=== PATIENT | male | born 1960 | race Caucasian/White ===

== ENCOUNTER 2020-12-04 01:12 | Day surgery (SDC) | payer OTHER, SELFPAY ==
[2020-11-22 14:02] VITALS: BMI 33.5
--- NOTE | 2020-12-04 10:55 | WPDANESEPPF ---
Anes - Initial Pre Proc Eval Procedure: Operation Date: 12/04/20 12:30 Proposed Procedures p Screening Colonoscopy - Tim Aguirre MD Date/Time: 12/04/20 10:55 Surgeon: Tim Aguirre MD Pre Op Diagnosis: neoplasm screening Patient Data Age: 60 Gender: M Height: 1.73 m Weight: 100 kg Allergies Allergy/AdvReac Type Severity Reaction Status Date / Time No Known Allergies Allergy Verified 12/04/20 11:26 Home Medications Medication Instructions Recorded Confirmed Type diphenhydramine HCl 25 mg capsule 25 mg PO Q4-6H PRN cap 02/11/19 11/22/20 History lisinopril 20 1 tablet PO DAILY #90 tablet 09/07/20 11/22/20 Rx mg-hydrochlorothiazide 12.5 mg tablet cyclobenzaprine 10 mg tablet 10 mg PO .COMPLEX #90 tablet 09/11/20 11/22/20 Rx Patient hx anesthesia problems: none Family hx anesthesia problems: none PMFSH Past Medical History Medical History (Updated 12/04/20 @ 10:56 by Vinay Barr MD) Essential (primary) hypertension History of melanoma Melanoma Obesity Prediabetes (~2014) SI (sacroiliac) joint inflammation Family History Family History (Updated 11/18/13 @ 07:13 by DOCTOR UNKNOWN) Father Cerebrovascular accident Family history of malignant neoplasm of kidney Hypertension Mother Hypertension Family history of malignant neoplasm of skin Sibling Family history of malignant melanoma Social History Social History Smoking status: Never smoker Alcohol intake: current Living arrangements: with family Spiritual care concerns: No Anes - Eval Final PreProcedure Day of Procedure 12/04/20 10:55 Patient weight: obese Heart: regular rate and rhythm Lungs: clear to auscultation and normal air movement Airway: Mallampati scale class II Neurological: alert and oriented Last oral intake: >/= 8 hours ASA classification: III Emergent: no Anesthetic plan: proceed Anesthesia type and monitoring: general GIVS Informed Consent: The patient's anesthetic plan and its attendant risks and benefits were discussed with the patient/family/POA. Questions were solicited and answers provided to the satisfaction of the patient/family/POA.
[2020-12-04 11:27] VITALS: BP 148/98; PULSE 71; RESP 16; TEMP 36.1; O2SAT 100
[2020-12-04] MEDS: LACTATED RINGERS 1,000 ML 150 ML IV CONT (12:05)
--- NOTE | 2020-12-04 12:10 | PM.HPGS ---
History of Present Illness History of Present Illness Consent: Risks, benefits, and alternatives have been discussed and questions answered. Patient agrees to proceed with procedure. Chief complaint: neoplasm screening Narrative: Shaw Santiago is a 60 year old male referred for colon cancer screening. It has been 10 years since his last colonoscopy Review of Systems Review of Systems: All systems reviewed & are unremarkable except as noted in HPI and below PMFSH Past Medical History Medical History Essential (primary) hypertension History of melanoma Melanoma Obesity Prediabetes (~2014) SI (sacroiliac) joint inflammation Family History Family History Father Cerebrovascular accident Family history of malignant neoplasm of kidney Hypertension Mother Hypertension Family history of malignant neoplasm of skin Sibling Family history of malignant melanoma Social History Social History Smoking status: Never smoker Alcohol intake: current Living arrangements: with family Spiritual care concerns: No Meds Home Medications and Allergies Home Medications Medication Instructions Recorded Confirmed Type diphenhydramine HCl 25 mg capsule 25 mg PO Q4-6H PRN cap 02/11/19 11/22/20 History lisinopril 20 1 tablet PO DAILY #90 tablet 09/07/20 11/22/20 Rx mg-hydrochlorothiazide 12.5 mg tablet cyclobenzaprine 10 mg tablet 10 mg PO .COMPLEX #90 tablet 09/11/20 11/22/20 Rx Allergies Allergy/AdvReac Type Severity Reaction Status Date / Time No Known Allergies Allergy Verified 12/04/20 11:26 Vital Signs Vital Signs - 24 hr 12/04/20 11:27 Temperature 36.1 C L Pulse Rate 71 Respiratory Rate 16 Blood Pressure 148/98 H Pulse Oximetry 100 Exam Resp: Auscultation: clear to auscultation bilaterally Cardio: Rate: regular rate Rhythm: regular rhythm GI: GI Palp: Yes Soft to palpation and No Tenderness to palpation present (GI) Assessment and Plan Assessment and plan (1) Colon cancer screening: Code(s): Z12.11 - Encounter for screening for malignant neoplasm of colon Status: Acute Assessment and Plan: Colonoscopy with possible biopsy or polypectomy or cautery or injection of substances.
[2020-12-04 12:34] VITALS: BP 124/71; PULSE 65; RESP 15; O2SAT 100
[2020-12-04 12:44] VITALS: BP 134/88; PULSE 60; RESP 26; O2SAT 100
[2020-12-04 12:54] VITALS: BP 136/76; PULSE 54; RESP 20; O2SAT 99
== END 2020-12-04 13:02 | disposition home or self-care (01) ==
PROVIDERS: PCP Nurse Practitioner Family; Visit Provider Internal Medicine Gastroenterology
PROC: 0DJD8ZZ Inspection of Lower Intestinal Tract, Via Natural or Artificial Opening Endoscopic (ICD-10-PCS; CPT 45378; principal; 2020-12-04 12:30)
DX: Z12.11 Encounter for screening for malignant neoplasm of colon (principal); K57.30 Diverticulosis of large intestine without perforation or abscess without bleeding; I10 Essential (primary) hypertension; R73.03 Prediabetes; E66.9 Obesity, unspecified; Z85.820 Personal history of malignant melanoma of skin
CPT/HCPCS: 45378; J2704; J7120

== ENCOUNTER 2022-09-02 08:47 | Outpatient (CLI) | payer OTHER, SELFPAY ==
[2022-09-02 14:25] LABS: Basophils Absolute Auto 0.1 K/mm3 (0.0-0.1); Basophils Percent Auto 0.7 % (0.2-1.2); Eosinophils Percent Auto 0.6 % (0-4.4); Hematocrit 42.3 % (42.0-52.0); Hemoglobin 14.2 g/dL (14.0-18.0); Immature Granulocyte Absolute 0.02 K/mm3 (0.00-0.031); Immature Granulocyte Percent A 0.3 % (0-0.5); Lymphocytes Absolute Auto 1.21 K/mm3 (0.9-3.2); Lymphocytes Percent Auto 16.7 % (18.3-44.2); Mean Corpuscular HGB Conc 33.6 g/dl (32-36); Mean Corpuscular Hemoglobin 30.5 pg (26-34); Mean Corpuscular Volume 90.8 fl (80-100); Mean Platelet Volume 10.2 fl (7.4-10.4); Monocytes Absolute Auto 0.4 K/mm3 (0.1-0.6); Monocytes Percent Auto 5.9 % (2.6-8.5); Neutrophils Absolute Auto 5.5 K/mm3 (1.3-6.7); Neutrophils Percent Auto 75.8 % (45.5-73.1); Platelet Count Result 321 k/mm3 (150-375); Red Blood Count 4.66 M/mm3 (4.6-6.20); Red Cell Distribution Width 14.1 % (11.5-14.5); White Blood Count 7.2 K/mm3 (4.5-10.0)
[2022-09-02 14:31] LABS: Alanine Aminotransferase 27 U/L (6-50); Albumin Level 4.1 g/dL (3.5-5.1); Alkaline Phosphatase 54 U/L (38-126); Anion Gap 2 mmol/L (8-16); Aspartate Amino Transferase 37 U/L (17-59); Bilirubin,Total 0.7 mg/dL (0.2-1.3); Blood Urea Nitrogen 17 mg/dL (9-20); Calcium 8.5 mg/dL (8.4-10.2); Carbon Dioxide 30 mmol/L (22-30); Chloride 106 mmol/L (98-107); Cholesterol 183 mg/dL (0-200); Estimated Glomerular Filt Rate > 60; Glucose 80 mg/dL (65-110); HDL Direct 44 mg/dL; Potassium 4.8 mmol/L (3.4-5.0); Sodium 138 mmol/L (137-145); Triglycerides 89 mg/dL (<150)
[2022-09-02 14:42] LABS: LDL Cholesterol Direct 117 mg/dL
[2022-09-02 15:03] LABS: Prostate Specific Antigen 0.9 ng/mL (< OR = 4.0)
[2022-09-02 15:09] LABS: Vitamin D 25 Hydroxy 33.5 ng/mL
[2022-09-02 16:13] LABS: Hemoglobin A1C 5.5 % (<5.7)
== END 2022-09-02 08:48 | disposition home or self-care (01) ==
LOC: ANHGOSHLAB 08:48
PROVIDERS: PCP Family Medicine; Visit Provider Nurse Practitioner Family
DX: Z00.00 Encounter for general adult medical examination without abnormal findings (principal); I10 Essential (primary) hypertension; R73.03 Prediabetes; E78.5 Hyperlipidemia, unspecified; Z12.5 Encounter for screening for malignant neoplasm of prostate; E55.9 Vitamin D deficiency, unspecified
CPT/HCPCS: 36415; 80053; 80061; 82306; 83036; 84153; 84443; 85025; G0103

== ENCOUNTER 2023-12-04 08:55 | Outpatient (CLI) | payer OTHER, SELFPAY ==
[2023-12-04 18:54] LABS: Basophils Absolute Auto 0.1 K/mm3 (0.0-0.1); Basophils Percent Auto 0.8 % (0.2-1.2); Eosinophils Absolute Auto 0.1 K/mm3 (0-0.3); Eosinophils Percent Auto 2.2 % (0-4.4); Immature Granulocyte Absolute 0.02 K/mm3 (0.00-0.031); Immature Granulocyte Percent A 0.3 % (0-0.5); Lymphocytes Absolute Auto 1.38 K/mm3 (0.9-3.2); Lymphocytes Percent Auto 22.8 % (18.3-44.2); Mean Corpuscular HGB Conc 33.3 g/dl (32-36); Mean Corpuscular Hemoglobin 30.8 pg (26-34); Mean Corpuscular Volume 92.4 fl (80-100); Mean Platelet Volume 10.6 fl (7.4-10.4); Monocytes Absolute Auto 0.6 K/mm3 (0.1-0.6); Monocytes Percent Auto 9.3 % (2.6-8.5); Neutrophils Absolute Auto 3.9 K/mm3 (1.3-6.7); Neutrophils Percent Auto 64.6 % (45.5-73.1); Platelet Count Result 316 k/mm3 (150-375); Red Blood Count 4.87 M/mm3 (4.6-6.20); Red Cell Distribution Width 14.2 % (11.5-14.5)
[2023-12-04 19:15] LABS: Alanine Aminotransferase 21 U/L (6-50); Albumin Level 4.2 g/dL (3.5-5.1); Alkaline Phosphatase 47 U/L (38-126); Anion Gap 9 mmol/L (4-12); Aspartate Amino Transferase 50 U/L (17-59); Bilirubin,Total 0.7 mg/dL (0.2-1.3); Blood Urea Nitrogen 17 mg/dL (9-20); Calcium 8.9 mg/dL (8.4-10.2); Carbon Dioxide 28 mmol/L (22-30); Chloride 100 mmol/L (98-107); Cholesterol 189 mg/dL (0-200); Estimated Glomerular Filt Rate > 60; Glucose 83 mg/dL (65-110); HDL Direct 44 mg/dL; Potassium 4.4 mmol/L (3.4-5.0); Sodium 137 mmol/L (137-145); Triglycerides 106 mg/dL (<150)
[2023-12-04 19:26] LABS: LDL Cholesterol Direct 115 mg/dL
[2023-12-04 19:40] LABS: Prostate Specific Antigen 1.2 ng/mL (< OR = 4.0)
[2023-12-04 19:54] LABS: Hemoglobin A1C 5.8 % (<5.7)
[2023-12-04 20:01] LABS: Thyroid Stimulating Hormone Reflex 0.818 uIU/mL (0.465-4.68)
[2023-12-07 13:23] LABS: Vitamin D 1,25 (OH)2 Total 27 pg/mL (18-72); Vitamin D2 1,25 (OH)2 <8 pg/mL; Vitamin D3 1,25 (OH)2 27 pg/mL
== END 2023-12-04 08:56 | disposition home or self-care (01) ==
LOC: ANHGOSHLAB 08:57
PROVIDERS: PCP Family Medicine; Visit Provider Nurse Practitioner Family
DX: Z00.00 Encounter for general adult medical examination without abnormal findings (principal); E55.9 Vitamin D deficiency, unspecified; F41.9 Anxiety disorder, unspecified; R73.03 Prediabetes; I10 Essential (primary) hypertension; E66.9 Obesity, unspecified; E78.5 Hyperlipidemia, unspecified; E53.8 Deficiency of other specified B group vitamins; E03.9 Hypothyroidism, unspecified; Z12.5 Encounter for screening for malignant neoplasm of prostate
CPT/HCPCS: 36415; 80053; 80061; 82607; 82652; 83036; 84153; 84443; 85025

== ENCOUNTER 2024-11-29 07:59 | Outpatient (CLI) | payer MEDICARE, OTHER, SELFPAY ==
--- OUTSIDE RECORDS SUMMARY | 2024-11-29 08:14 | XMS_ITS | Encounter Summary ---
Author Organization [facility] Address [address] [facility] [place] [address] Care Team Providers Care Title Processor Name Role Phone Evan Haas MD Primary Care Provider [phone] Encounter Details Date Type Department Care Team (Late st Contact Info) Description 08/21/2022 Lab Requisition [facility] - DermPath Lab [address] [facility] [place] [address] Yady Rae MD [address] [facility] [address] [place] [address] Social History Tobacco Use Types Packs/Day Years Used Date Smoking Tobacco: Never Smokeless Tobacco: Never Alcohol Use Standard Drinks/Week Comments No 0 (1 standard drink = 0.6 oz pur e alcohol) Sex and Gender Information Value Date Recorded Sex Assigned at Not on file 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 Sex 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 Gender Identity Not on file Sexual Orientation Not on file documented as of this encounter Plan of Treatment Not on file documented as of this encounter Procedures Procedure Name Priority Date/Time Associated Diagnosis Comments DERMATOPATHOLOGY Routine 08/21/2022 8:21 AM CDT documented in this encounter Results * DERMATOPATHOLOGY (08/21/2022 8:21 AM CDT) Case Report Dermatopathology Report Case: [id number] Authorizing Provider: Yady Rae MD Collected: 08/21/2022 08:21 AM Ordering Location: [facility] DermPath Lab Received: 08/21/2022 12:54 PM Pathologist: Roseanne Bland MD Specimen: Skin, post neck 1:38 PM CDT DERMATOPATHOLOGY LABORATORY Final Diagnosis Specimen A. SKIN, post neck: BENIGN VERRUCOUS KERATOSIS, INFLAMED (L82.1) EPIDERMAL NECROSIS SUGGESTIVE OF EXCORIATION (L98.499) (see microscopic description) 1:38 PM CDT DERMATOPATHOLOGY LABORATORY at 1338 CDT Clinical History [place] Papule ISK vs. SCC 1:38 PM CDT DERMATOPATHOLOGY LABORATORY Gross Description Specimen A: Received is one formalin filled container labeled with the patient's name and designated post neck. The specimen consists of a shave biopsy measuring 7x6x4 mm. Jar 0. 1:38 PM CDT DERMATOPATHOLOGY LABORATORY Microscopic Description Specimen A. SKIN, post neck: Sections show hyperkeratosis, papillomatosis, hypergranulosis, and acanthosis. Inflammatory cells are present within the dermis. These histological findings can be seen in a verruca vulgaris or a seborrheic keratosis. The epidermis is focally necrotic and covered with a scale-crust. There is fibrin at the base. Additional deeper sections were obtained and reviewed. 1:38 PM CDT DERMATOPATHOLOGY LABORATORY Disclaimer An external and internal positive and negative controls are appropriate for the histochemical, immunohistochemical and immunofluorescence stain(s) in this case (if any), except where stated explicitly. The performance characteristics of the stain(s) cited in this report were developed and its performance characteristic determined by the Dermatopathology Laboratory at [facility], directed by Dr. Luma Meléndez. These tests need not be, and therefore are not, approved by the [place] Food and Drug Administration. The tests are used for clinical purposes. Billing Codes Specimen Charges Stain Charges 25768 1 1:38 PM CDT DERMATOPATHOLOGY LABORATORY Embedded Images 1:38 PM CDT DERMATOPATHOLOGY LABORATORY Pathology/Cytolo gy TISSUE SPECIMEN FROM SKIN / Unknown 08/21/2022 8:21 AM CDT 08/21/2022 12:54 PM CDT Yady Rae MD LAB - PATHOLOGY/CYTOLOGY ORD ERABLES Final Result DERMATOPATHOLOGY LABORATORY [facility] - Department of Dermatology [facility] Medicine [address] [place] [address], [address] [phone] documented in this encounter Visit Diagnoses Not on filedocumented in this encounter Care Teams Title Processor Relationship Specialty Start Date End Date Evan Haas MD [address] [place] [address] PCP - General 02/06/15 documented as of this encounter
--- OUTSIDE RECORDS SUMMARY | 2024-11-29 08:14 | XMS_ITS | Encounter Summary ---
Author Organization [facility] Address [address] [place] [address] Care Team Providers Care Coffee Grower Name Role Phone Evan Haas MD Primary Care Provider [phone] Encounter Details Date Type Department Care Team (Late st Contact Info) Description 10/27/2024 Lab Requisition [facility] - DermPath Lab [address] [facility] [place] [address] Yady Rae MD [address] 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 Gender Identity Not on file Sexual Orientation Not on file documented as of this encounter Plan of Treatment Not on file documented as of this encounter Procedures Procedure Name Priority Date/Time Associated Diagnosis Comments DERMATOPATHOLOGY Routine 10/27/2024 9:37 AM CDT documented in this encounter Results * DERMATOPATHOLOGY (10/27/2024 9:37 AM CDT) Case Report Dermatopathology Report Case: [id number] Authorizing Provider: Yady Rae MD Collected: 10/27/2024 09:37 AM Ordering Location: [facility] - Received: 10/27/2024 04:36 PM DermPath Lab Pathologist: Aisha Bland MD Specimens: A) - Skin, right chin B) - Skin, left neck 12:55 PM CDT DERMATOPATHOLOGY LABORATORY Final Diagnosis Specimen A. 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 SKIN, left neck: NEUROFIBROMA (D36.10) 12:55 PM CDT DERMATOPATHOLOGY LABORATORY at 1255 CDT Clinical History A-B: Nevus; R/O Atypia 12:55 PM CDT DERMATOPATHOLOGY LABORATORY Gross Description Specimen A: Received is one formalin filled container labeled with the patient's name and designated right chin. The specimen consists of a shave biopsy measuring 2 pieces 4x4x1,3x2x1 mm. Jar 0. Specimen B: Received is one formalin filled container labeled with the patient's name and designated left neck. The specimen consists of a shave biopsy measuring 7x6x2 mm. Jar 0. 12:55 PM CDT DERMATOPATHOLOGY LABORATORY Microscopic Description Specimen A. SKIN, right chin: Within the dermis, there is a well-circumscribed aggregate of spindle shaped cells with hints of organization into fascicles and clefts between these fascicles. Specimen B. SKIN, left neck: Sections show a proliferation of spindled and S-shaped cells within the dermis. The stromal collagen is delicate and pale. 12:55 PM CDT DERMATOPATHOLOGY LABORATORY Disclaimer An external and internal positive and negative controls are appropriate for the histochemical, immunohistochemical and immunofluorescence stain(s) in this case (if any), except where stated explicitly. The performance characteristics of the stain(s) cited in this report were developed and its performance characteristic determined by the Dermatopathology Laboratory at [facility], directed by Dr. Luma Meléndez. These tests need not be, and therefore are not, approved by the [place] Food and Drug Administration. The tests are used for clinical purposes. Billing Codes Specimen Charges Stain Charges 02156 79176 1 1 12:55 PM CDT DERMATOPATHOLOGY LABORATORY Embedded Images 12:55 PM CDT DERMATOPATHOLOGY LABORATORY Pathology/Cytology TISSUE SPECIMEN FROM SKIN / Unknown 10/27/2024 9:37 AM CDT 10/27/2024 4:36 PM CDT Miscellaneous samples (specimen) TISSUE SPECIMEN FROM SKIN / Unknown 10/27/2024 9:37 AM CDT 10/27/2024 4:36 PM CDT us Yady Rae MD LAB - PATHOLOGY/CYTOLOGY ORD ERABLES Final Result DERMATOPATHOLOGY LABORATORY [facility] - Department of Dermatology [facility] Medicine [address] [place] [address], [address] [phone] documented in this encounter Visit Diagnoses Not on filedocumented in this encounter Care Teams Coffee Grower Relationship Specialty Start Date End Date Evan Haas MD [address] [place] [address] PCP - General 02/06/15 documented as of this encounter
--- OUTSIDE RECORDS SUMMARY | 2024-11-29 08:14 | XMS_ITS | Encounter Summary ---
Author Organization [facility] Address [address] [place] [place] [address] Care Team Providers Care Code Enforcement Inspector Name Role Phone Evan Haas MD Primary Care Provider [phone] Encounter Details Date Type Department Care Team (Late st Contact Info) Description 05/04/2019 Lab Requisition [facility] DermPath Lab [address] [facility], [place] [address] Yady Rae MD [address] [facility] [address] [place] [address] Social History Tobacco Use Types Packs/Day Years Used Date Smoking Tobacco: Never Smokeless Tobacco: Never Alcohol Use Standard Drinks/Week Comments No 0 (1 standard drink = 0.6 oz pur e alcohol) Sex and Gender Information Value Date Recorded Sex Assigned at Not on file Legal Sex 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 Gender Identity Not on file Sexual Orientation Not on file documented as of this encounter Plan of Treatment Not on file documented as of this encounter Procedures Procedure Name Priority Date/Time Associated Diagnosis Comments DERMATOPATHOLOGY Routine 05/03/2019 12:0 0 AM CARDIAC NURSE SPECIALIST documented in this encounter Results * DERMATOPATHOLOGY (05/03/2019 12:00 AM CARDIAC NURSE SPECIALIST) Case Report Dermatopathology Report Case: [id number] Authorizing Provider: Yady Rae MD Collected: 05/03/2019 12:00 AM Ordering Location: [facility] DermPath Lab Received: 05/04/2019 08:05 AM Pathologist: Arpita Bender MD Specimen: Skin, low back 0 12:35 PM CARDIAC NURSE SPECIALIST DERMATOPATHOLOGY LABORATORY Final Diagnosis Specimen A. SKIN, low back: COMPOUND NEVUS WITH CONGENITAL FEATURES (D22.5) 0 12:35 PM [facility] DERMATOPATHOLOGY LABORATORY at 1235 CARDIAC NURSE SPECIALIST Clinical History R/O MM. Hx of MM. 0 12:35 PM [facility] DERMATOPATHOLOGY LABORATORY Gross Description Specimen A: Received is one formalin filled container labeled with the patient's name and designated low back. The specimen consists of a shave measuring 46y62a0pd. Jar 0. 0 12:35 PM [facility] DERMATOPATHOLOGY LABORATORY Microscopic Description Specimen A. SKIN, low back: There are nests of melanocytes at the dermal-epidermal junction and within the dermis. Some melanocytes are splayed between collagen bundles and are localized around adnexal structures. 0 12:35 PM [facility] DERMATOPATHOLOGY LABORATORY Disclaimer An external and internal positive and negative controls are appropriate for the histochemical, immunohistochemical and immunofluorescence stain(s) in this case (if any), except where stated explicitly. The performance characteristics of the stain(s) cited in this report were developed and its performance characteristic determined by the Dermatopathology Laboratory at [facility], directed by Dr. Luma Meléndez. These tests need not be, and therefore are not, approved by the [place] Food and Drug Administration. The tests are used for clinical purposes. Billing Codes Specimen Charges Stain Charges 47240 1 0 12:35 PM [facility] DERMATOPATHOLOGY LABORATORY Embedded Images 0 12:35 PM [facility] DERMATOPATHOLOGY LABORATORY Pathology/Cytolog y TISSUE SPECIMEN FROM SKIN / Unknown 05/03/2019 05/04/2019 8:05 AM CARDIAC NURSE SPECIALIST us Yady Rae MD LAB - PATHOLOGY/CYTOLOGY ORD ERABLES Final Result DERMATOPATHOLOGY LABORATORY [facility] - Department of Dermatology [address] [facility], [address]th [place] [address], [facility] [phone] documented in this encounter Visit Diagnoses Not on filedocumented in this encounter Care Teams Code Enforcement Inspector Relationship Specialty Start Date End Date Evan Haas MD [address] [place] [address] PCP - General 02/06/15 documented as of this encounter
--- OUTSIDE RECORDS SUMMARY | 2024-11-29 08:14 | XMS_ITS | Clinical Summary ---
Author Organization [facility] Address [address] [place] [address] Care Team Providers Care Medical Equipment Technician Name Role Phone Evan Haas MD Primary Care Provider [phone] Source Comments [facility],non-owned Affiliates and Associated Physician Practices is amultiple site organization consisting of ambulatory clinics and hospital sitesin [place], [place], [place] and [place]. This disclosure is being madepursuant to the Care Everywhere program and may not contain all information available regarding this patient. Last updated 17.[facility] Active Problems Problem Noted Date Diagnosed Date Malignant melanoma of other part of trunk 2013 Encounters Date Type Department Care Team Description 10/27/[address] [facility] - DermPath Lab [address] [facility] [place] [address] Yady Rae MD from Last 3 Months Family History Medical History Relation Name Comments Hypertension Brother Status: Alive Cancer Father Status: Alive Hypertension Father Leukemia Maternal Grandfather Status: None Known Mother Status: Alive Cancer Paternal Grandmother Status: Relation Name Status Comments Brother Father Maternal Grandfather Mother Paternal Grandmother Social History Tobacco Use Types Packs/Day Years Used Date Smoking Tobacco: Never Smokeless Tobacco: Never Alcohol Use Standard Drinks/Week Comments No 0 (1 standard drink = 0.6 oz pur e alcohol) Sex and Gender Information Value Date Recorded Sex Assigned at Not on file Legal Sex Male 6:07 PM 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 Gender Identity Not on file Sexual Orientation Not on file Last Filed Vital Signs Vital Sign Reading Time Taken Comments Blood Pressure 139/81 02/06/2015 1:51 PM 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 Pulse 82 02/06/2015 1:51 PM 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 Temperature 36.9 C (98.5 F) 02/06/2015 1:51 PM 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 Respiratory Rate - - Oxygen Saturation - - Inhaled Oxygen Concentration - - Weight 113.9 kg (251 lb) 02/06/2015 1:51 PM 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 Height 172.7 cm (5' 8) 01/24/2014 12:46 PM 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 Body Mass Index 38.16 01/24/2014 12:46 PM 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 Plan of Treatment Health Maintenance Due Date Last Done Comments COLOGUARD (AGES 45-75) - COL ON CA SCREENING 1959 COLON MONITORING 1959 COLONOSCOPY - COLON CA SCREENING 1959 CT COLONOGRAPHY - COLON CA SCREENING 1959 Colorectal Cancer Screening 1959 FIT - COLON CA SCREENING 1959 FLEX SIG - COLON CA SCREENING 1959 LIPID TESTING 1959 MEDICARE AWV 12 MONTHS 1959 HIV SCREENING 09/09/1974 HEPATITIS C SCREENING 09/05/1977 DTAP/TDAP/TD VACCINES (1 - Tdap) 09/09/1978 PNEUMOCOCCAL VACCINE 50+ (1 of 1 - PCV) 09/09/2009 ZOSTER VACCINE (1 of 2) 09/09/2009 DEPRESSION SCREENING 03/24/2024 COVID-19 VACCINE ( - 2023-2 5 season) 2024 INFLUENZA VACCINE (#1) 2024 Respiratory Syncytial Virus (RSV) Vaccine Pt: or over 60 yrs (1 - 1-dose 75+ series) 09/09/2034 HEPATITIS B VACCINE Aged Out No longe r eligible based on patient's age to complete this topic HIB VACCINE Aged Out No longer eligi ble based on patient's age to complete this topic HPV VACCINE Aged Out No longer eligi ble based on patient's age to complete this topic MENINGOCOCCAL (Group B) VACC INE SHARED DECISION-MAKING Aged Out No longer eligibl e based on patient's age to complete this topic MENINGOCOCCAL GROUPS A/C/Y/W VACCINE Aged Out No longer eligible b ased on patient's age to complete this topic Procedures Procedure Name Priority Date/Time Associated Diagnosis Comments DERMATOPATHOLOGY Routine 10/27/2024 9:37 AM CDT from Last 3 Months Results * DERMATOPATHOLOGY (10/27/2024 9:37 AM CDT) Case Report Dermatopathology Report Case: [id number] Authorizing Provider: Yady Rae MD Collected: 10/27/2024 09:37 AM Ordering Location: [facility] - Received: 10/27/2024 04:36 PM DermPath Lab [...] determined by the Dermatopathology Laboratory at [facility], directed by Dr. Luma Meléndez. These tests need not be, and therefore are not, approved by the [place] Food and Drug Administration. The tests are used for clinical purposes. Billing Codes Specimen Charges Stain Charges 43916 19470 1 1 12:55 PM CDT DERMATOPATHOLOGY LABORATORY Embedded Images 12:55 PM CDT DERMATOPATHOLOGY LABORATORY Pathology/Cytology TISSUE SPECIMEN FROM SKIN / Unknown 10/27/2024 9:37 AM CDT 10/27/2024 4:36 PM CDT Miscellaneous samples (specimen) TISSUE SPECIMEN FROM SKIN / Unknown 10/27/2024 9:37 AM CDT 10/27/2024 4:36 PM CDT Yady Rae MD LAB - PATHOLOGY/CYTOLOGY ORD ERABLES Final Result DERMATOPATHOLOGY LABORATORY [facility] - Department of Dermatology [facility] Medicine [address] [place] [address], [address] [phone] from Last 3 Months Insurance [facility] MEDICARE Care Teams Medical Equipment Technician Relationship Specialty Start Date End Date Evan Haas MD [address] [place] [address] PCP - General 02/06/15
--- OUTSIDE RECORDS SUMMARY | 2024-11-29 08:14 | XMS_ITS | Encounter Summary ---
Author Organization [facility] Address [address] [place] [address] Care Team Providers Care Preassembler [employer] Name Role Phone Evan Haas MD Primary Care Provider [phone] Encounter Details Date Type Department Care Team (Late st Contact Info) Description 07/07/2017 Lab Requisition [facility] [address] [place] [id number] Poppy Galindo MD [address] [facility] [address] [place] [address] Social History Tobacco Use Types Packs/Day Years Used Date Smoking Tobacco: Never Smokeless Tobacco: Never Alcohol Use Standard Drinks/Week Comments No 0 (1 standard drink = 0.6 oz pur e alcohol) Sex and Gender Information Value Date Recorded Sex Assigned at Not on file Legal Sex Male 6:07 PM [employer] Gender Identity Not on file Sexual Orientation Not on file documented as of this encounter Plan of Treatment Not on file documented as of this encounter Procedures Procedure Name Priority Date/Time Associated Diagnosis Comments DERMATOPATHOLOGY Routine 07/04/2017 12:0 0 AM CDT documented in this encounter Results * DERMATOPATHOLOGY (07/04/2017 12:00 AM CDT) Case Report Dermatopathology Report Case: [id number] Authorizing Provider: Poppy Galindo MD Collected: 07/04/2017 12:00 AM Pathologist: Koko Meléndez MD Received: 07/07/2017 07:30 AM Specimen: Skin, central mid back 8 1:13 PM CDT DERMATOPATHOLOGY LABORATORY Final Diagnosis Specimen A. 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 1:13 PM CDT DERMATOPATHOLOGY LABORATORY Gross Description Specimen: A: Received is one formalin filled container labeled with the patient's name and designated central mid back. The specimen consists of a shave measuring [id number]. Jar 0. 1:13 PM CDT DERMATOPATHOLOGY LABORATORY Microscopic Description Specimen A. SKIN, central mid back: This is a compound nevus. There is melanin pigment in the stratum corneum. There is architectural disorder characterized by a lentiginous proliferation of melanocytes between irregular nevus nests of cells along the dermal epidermal junction. There is underlying fibroplasia of the papillary dermis. The intradermal component is bland in appearance and matures with depth. (Compound Baron's Nevus or Compound Dysplastic Nevus) 1:13 PM CDT DERMATOPATHOLOGY LABORATORY Disclaimer An external and internal positive and negative controls are appropriate for the histochemical, immunohistochemical and immunofluorescence stain(s) in this case (if any), except where stated explicitly. The performance characteristics of the stain(s) cited in this report were developed and its performance characteristic determined by the Dermatopathology Laboratory at [facility]. These tests need not be, and therefore are not, approved by the [place] Food and Drug Administration. The tests are used for clinical purposes. Billing Codes Specimen Charges Stain Charges 63758 1 8 1:13 PM CDT DERMATOPATHOLOGY LABORATORY Embedded Images 8 1:13 PM CDT DERMATOPATHOLOGY LABORATORY Pathology/Cytolog y TISSUE SPECIMEN FROM SKIN / Unknown 07/04/2017 07/07/2017 7:30 AM CDT us Poppy Galindo MD LAB - PATHOLOGY/CYTOLOGY OR DERABLES Final Result DERMATOPATHOLOGY LABORATORY [facility] - Department of Dermatology [address] Lab [address] [phone] documented in this encounter Visit Diagnoses Not on filedocumented in this encounter Care Teams Preassembler [employer]ed [employer] Relationship Specialty Start Date End Date Evan Haas MD [address] [place] [address] PCP - General 02/06/15 documented as of this encounter
[2024-11-29 12:53] LABS: Hematocrit 46.2 % (42.0-52.0); Hemoglobin 15.2 g/dL (14.0-18.0); Immature Granulocyte Percent A 0.7 % (0-0.5); Lymphocytes Absolute Auto 3.25 K/mm3 (0.9-3.2); Mean Corpuscular HGB Conc 32.9 g/dl (32-36); Mean Corpuscular Hemoglobin 30.4 pg (26-34); Mean Corpuscular Volume 92.4 fl (80-100); Nucleated Red Blood Cells Absolute Auto 0.000 K/mm3 (0.0-0.012); Nucleated Red Blood Cells Perc 0.0 % (0.0-0.2); Platelet Count Result 323 k/mm3 (150-375); Red Blood Count 5.00 M/mm3 (4.6-6.20); White Blood Count 6.8 K/mm3 (4.5-10.0)
[2024-11-29 13:08] LABS: Hemoglobin A1C 5.6 % (<5.7)
[2024-11-29 13:22] LABS: Alanine Aminotransferase 26 U/L (6-50); Albumin Level 4.0 g/dL (3.5-5.1); Alkaline Phosphatase 45 U/L (38-126); Anion Gap 6 mmol/L (4-12); Aspartate Amino Transferase 36 U/L (17-59); Bilirubin,Total 0.4 mg/dL (0.2-1.3); Blood Urea Nitrogen 25 mg/dL (9-20); Calcium 9.4 mg/dL (8.4-10.2); Carbon Dioxide 30 mmol/L (22-30); Chloride 101 mmol/L (98-107); Cholesterol 197 mg/dL (0-200); Estimated Glomerular Filt Rate > 60; Glucose 79 mg/dL (65-110); HDL Direct 38 mg/dL; Potassium 4.4 mmol/L (3.4-5.0); Sodium 137 mmol/L (137-145); Total Protein 6.8 g/dL (6.3-8.2); Triglycerides 145 mg/dL (<150)
[2024-11-29 13:32] LABS: Thyroid Stimulating Hormone Reflex 0.985 uIU/mL (0.465-4.68)
[2024-11-29 13:57] LABS: Prostate Specific Antigen 1.1 ng/mL (< OR = 4.0)
[2024-11-29 14:16] LABS: Vitamin B12 550.0 pg/mL (239-931)
== END 2024-11-29 08:00 | disposition home or self-care (01) ==
LOC: ANHGOSHLAB 08:00
PROVIDERS: PCP Family Medicine; Visit Provider Family Medicine
DX: E53.8 Deficiency of other specified B group vitamins (principal); I10 Essential (primary) hypertension; Z00.00 Encounter for general adult medical examination without abnormal findings; E78.5 Hyperlipidemia, unspecified; Z12.5 Encounter for screening for malignant neoplasm of prostate; R73.03 Prediabetes; E55.9 Vitamin D deficiency, unspecified
CPT/HCPCS: 36415; 80053; 80061; 82306; 82607; 83036; 84153; 84443; 85025; G0103